=== PATIENT | female | born 1975 | race Caucasian/White ===

== ENCOUNTER 2016-12-09 09:56 | Observation (INO) | payer BC ==
[~2016-12-09] VITALS: Ht 162.6 cm; Wt 95.9 kg
[~2016-12-09 09:56] MED LIST: IBUPROFEN800 MG PO; MOTRIN800 MG PO; SUMATRIPTAN SU100 MG PO; TYLENOL PM1 CAPLET PO
[2016-12-09 10:35] LABS: HEMATOCRIT 40.7 % (36.0-46.0); MCH 25.1 PG (29.0-34.0); MCHC 30.2 G/DL (30.0-36.0); MCV 82.9 FL (83-99); MEAN PLAT.VOLUME 10.4 uM^3 (9.5-12.4); PLATELET COUNT 303 K/uL (156-360); RBC DIS.WIDTH-CV 15.5 % (11.8-14.6); RBC DIS.WIDTH-SD 46.5 % (39-53); RED BLOOD COUNT 4.91 M/uL (3.80-5.20); WHITE BLOOD COUNT 5.8 K/uL (4.1-10.2)
[2016-12-09 10:45] LABS: CHLORIDE 107 mEq/L (99-109); SODIUM 139 mEq/L (136-147)
[2016-12-09 10:46] LABS: PROTHROMBIN TIME 10.6 (9.2-11.2); PTT 27.4 (25-32)
[2016-12-09 10:47] LABS: GLUCOSE 148 mg/dL (70-99)
[2016-12-09 10:48] LABS: ANION GAP 8 MEQ/L (2-14)
[2016-12-09 10:51] LABS: GFR ESTIMATE (CALCULATED) > 59 mL/min/; UREA NITROGEN (BUN) 9 mg/dL (9-23)
[2016-12-09 10:57] LABS: TROP-I INTERPRETATION NEGATIVE; TROPONIN-I < 0.01 ng/mL (0.0-0.30)
[2016-12-09] MEDS ORDERED: LEVO-T50 MCG PO (12:31)
[2016-12-09] MEDS ORDERED: PROZAC20 MG PO (12:31)
[2016-12-09] MEDS ORDERED: SLOW RELEASE I160 MG PO (12:32)
[2016-12-09 16:09] VITALS: BP 154/73
[2016-12-09 19:03] LABS: TROP-I INTERPRETATION NEGATIVE; TROPONIN-I < 0.01 ng/mL (0.0-0.30)
[2016-12-09 20:00] VITALS: BP 142/80
[2016-12-10 00:28] VITALS: BP 129/73
[2016-12-10 04:02] LABS: TROP-I INTERPRETATION NEGATIVE; TROPONIN-I < 0.01 ng/mL (0.0-0.30)
[2016-12-10 04:10] VITALS: BP 130/69
[2016-12-10 05:30] LABS: HDL CHOLESTEROL 58 MG/DL (Desirable>=50); LDL CHOLESTEROL 127 mg/dL (Desirable<100); NON-HDL CHOLESTEROL 141 mg/dL (Desirable<160); TOTAL CHOLESTEROL 199 mg/dL (Desirable<200); TRIGLYCERIDES 69 MG/DL (Normal: <150)
[2016-12-10 07:36] LABS: Estimated Average Glucose 97 mg/dL (70-123)
[2016-12-10] MEDS ORDERED: PRAVASTATIN SOD40 MG PO (08:39)
[2016-12-10] MEDS ORDERED: LO-DOSE ASPIRIN81 M2 PO (08:39)
== END 2016-12-10 10:32 | disposition home or self-care (01) ==
LOC: EME 09:56 → EDOF 13:20 → 5WEST 13:20 → EDOF 13:39 → 5WEST 15:57
PROVIDERS: Emergency Medicine; Internal Medicine
DX: G45.9 Transient cerebral ischemic attack, unspecified (principal); G43.909 Migraine, unspecified, not intractable, without status migrainosus; E03.9 Hypothyroidism, unspecified
CPT/HCPCS: 70450; 70551; 71020; 80048; 80061; 83036; 84443; 84484; 85027; 85610; 85730; 93005; 93880; 99281; 99285; G0378

== ENCOUNTER 2016-12-15 05:29 | Day surgery (SDC) | payer BC ==
[~2016-12-15] VITALS: Ht 162.6 cm; Wt 95.9 kg
[~2016-12-15 05:29] MED LIST changes: +LEVO-T50 MCG PO; +LO-DOSE ASPIRIN81 M2 PO; +PRAVASTATIN SOD40 MG PO; +PROZAC20 MG PO; +SLOW RELEASE I160 MG PO
[2016-12-15 06:10] VITALS: BP 131/74
[2016-12-15 11:35] VITALS: BP 122/68
[2016-12-15 16:00] VITALS: BP 120/58
[2016-12-15 19:56] VITALS: BP 131/60
[2016-12-15 23:35] VITALS: BP 101/51
[2016-12-16 03:36] VITALS: BP 116/56
[2016-12-16 03:43] VITALS: BP 116/56
[2016-12-16 07:25] LABS: ANION GAP 5 MEQ/L (2-14); CHLORIDE 107 MEQ/L (99-109); EOSINOPHIL (%) 0.3 % (0-5); GFR ESTIMATE (CALCULATED) > 59 mL/min/; GLUCOSE 86 mg/dL (70-99); HEMATOCRIT 33.1 % (36.0-46.0); IMMATURE GRANULOCYTE (%) 0.3 % (0.0-0.7); LYMPHOCYTE COUNT 1.8 K/uL (1.0-2.8); MCH 25.1 PG (29.0-34.0); MCHC 29.6 G/DL (30.0-36.0); MCV 84.7 FL (83-99); MEAN PLAT.VOLUME 10.7 uM^3 (9.5-12.4); MONOCYTE (%) 8.3 % (3-12); MONOCYTE COUNT 0.6 K/uL (0-0.8); NEUTROPHIL (%) 66.2 % (45-76); PLATELET COUNT 232 K/uL (156-360); POTASSIUM 4.1 MEQ/L (3.7-5.4); RBC DIS.WIDTH-CV 16.4 % (11.8-14.6); RBC DIS.WIDTH-SD 50.5 % (39-53); RED BLOOD COUNT 3.91 M/uL (3.80-5.20); SAMPLE HEMOLYSIS CHECK 0; SAMPLE ICTERIC CHECK 0; SAMPLE LIPEMIA CHECK 0; SODIUM 139 MEQ/L (136-147); UREA NITROGEN (BUN) 4 mg/dL (9-23); WHITE BLOOD COUNT 7.6 K/uL (4.1-10.2)
== END 2016-12-16 11:19 | disposition home or self-care (01) ==
LOC: SDC 05:29 → 2SOUTH 10:10 → 2EASTP 10:10 → 2SOUTH 10:10 → 2EASTP 11:40 → SDC 12:56 → 2EASTP 12-16 11:19
PROVIDERS: Obstetrics & Gynecology Gynecology
PROC: 0UTC8ZZ Resection of Cervix, Via Natural or Artificial Opening Endoscopic (ICD-10-PCS; principal; 2016-12-15)
PROC: 0TJ98ZZ Inspection of Ureter, Via Natural or Artificial Opening Endoscopic (ICD-10-PCS; principal; 2016-12-15)
PROC: 0UT9FZZ Resection of Uterus, Via Natural or Artificial Opening With Percutaneous Endoscopic Assistance (ICD-10-PCS; principal; 2016-12-15)
PROC: 0UT7FZZ Resection of Bilateral Fallopian Tubes, Via Natural or Artificial Opening With Percutaneous Endoscopic Assistance (ICD-10-PCS; principal; 2016-12-15)
PROC: 0DNS4ZZ (ICD-10-PCS; principal; 2016-12-15)
DX: D25.0 Submucous leiomyoma of uterus (principal); N92.1 Excessive and frequent menstruation with irregular cycle; N94.6 Dysmenorrhea, unspecified; K66.0 Peritoneal adhesions (postprocedural) (postinfection); D64.9 Anemia, unspecified; N72 Inflammatory disease of cervix uteri; G43.109 Migraine with aura, not intractable, without status migrainosus; E04.1 Nontoxic single thyroid nodule; E06.3 Autoimmune thyroiditis; E03.8 Other specified hypothyroidism; E78.5 Hyperlipidemia, unspecified; E66.09 Other obesity due to excess calories; Z68.34 Body mass index [BMI] 34.0-34.9, adult; Z82.0 Family history of epilepsy and other diseases of the nervous system; Z80.1 Family history of malignant neoplasm of trachea, bronchus and lung; Z83.3 Family history of diabetes mellitus; Z88.8 Allergy status to other drugs, medicaments and biological substances
CPT/HCPCS: 80048; 85025; 87086; 88307; G0378; J0131; J0330; J0690; J1100; J1170; J1200; J1644; J1885; J2250; J2405; J2710; J7120